=== PATIENT | male | born 1965 | race Caucasian/White ===

== ENCOUNTER 2017-01-16 06:47 | Observation (INO) | payer OTHER ==
[2017-01-16] VITALS (13 sets, daily range): BP systolic 108–121; BP diastolic 68–81
[~2017-01-16] VITALS: Ht 180.3 cm; Wt 111.6 kg
--- NOTE | ~2017-01-16 | D ---
[facility] [place] [address] DISCHARGE SUMMARY Name: CHRISTEL ETIENNE Room #: [facility] Janette M.R.#: [id number] Admission: 01/16/17 Attend Phys: Derek Parada MD Discharge: 01/17/17 Date of : 69 Report #: [id number] THIS REPORT FOR: //name// CC: Rogelio Parada DATE OF SERVICE: 01/17/2017 DIAGNOSES: 1. Atrial flutter. 2. Diabetes. HISTORY OF PRESENT ILLNESS: The patient is a 51-year-old recently hospitalized with atrial flutter with RVR, DKA and diastolic heart failure, who is here for elective ablation of his atrial flutter. The procedure was performed and was successful with achievement of bidirectional block. There were no complications. HOSPITAL COURSE: He was monitored overnight on Telemetry. He remained in sinus rhythm with rare premature ventricular contractions. His vitals were stable. On the day of discharge, he had no chest pain, shortness of breath, and no significant groin discomfort. His physical exam was normal with normal cardiovascular and pulmonary exams. Telemetry revealed sinus rhythm. As such, he was deemed stable for discharge home. Discharge instructions were reviewed. He was discharged on the same medications including his insulin, Xarelto and beta-jose f. I discontinued his diltiazem due to no longer needing this for rate control. He will follow up with me in 1 month. By: [id number] Derek Parada MD /stephane
--- NOTE | ~2017-01-16 | EKG ---
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 chacon : 1965 Requested By: Derek Parada Order Number: [id number] MD: Tomás Miller Measurements Intervals [place] Rate: 61 P: -28 MI: 234 QRS: 107 QRSD: 113 T: -7 QT: 433 QTc: 437 Interpretive Statements Sinus rhythm Prolonged MI interval Incomplete right bundle branch block Compared to ECG 11/25/2016 10:39:59 sinus rhythm has replaced atrial flutter Electronically Signed On 01-17-2017 8:26:48 CDT by Tomás Miller [email or web address] <ELECTRONICALLY SIGNED> By: Tomás Miller MD, [facility] 01/17/17 0826 0637 [id number] Tomás Miller MD, [facility] /EPI
--- NOTE | ~2017-01-16 | P ---
[facility] [place] [address] PROCEDURE REPORT Name: CHRISTEL ETIENNE Room #: [facility] Janette M.Sam.#: [id number] Admission: 01/16/17 Attend Phys: Derek Parada MD Discharge: 01/17/17 Date of : 69 Report #: [id number] THIS REPORT FOR: //name// CC: Rogelio Parada DATE OF SERVICE: 01/16/2017 DATE OF PROCEDURE: 01/16/2017. PROCEDURE: Atrial flutter ablation. PREOPERATIVE DIAGNOSIS: Typical atrial flutter. POSTOPERATIVE DIAGNOSIS: Typical atrial flutter. HISTORY: The patient is a 51-year-old male with a history of recurrent atrial flutter status post recent admission for rapid atrial flutter with acute diastolic heart failure as well as diabetic ketoacidosis. He is here for ablation of his atrial flutter. ANESTHESIA: The patient underwent MAC anesthesia with no anesthesia related complications. DESCRIPTION OF PROCEDURE: The patient underwent informed consent where we discussed the details of the procedure including the risks, which include, but not limited to bleeding, vascular damage, cardiac perforation, stroke, SC as well as damage to the [place] conduction system requiring permanent pacemaker. He understood these risks and is willing to proceed. The patient was brought to the EP laboratory in a fasting and unsedated state and prepped and draped in the sterile fashion. Next, I injected lidocaine to the right groin and obtained access to the right femoral vein x 3 placing an 8 and two 7-Khmer short sheaths using the modified Seldinger technique. Under fluoroscopic guidance, I placed a decapolar catheter into the coronary sinus with ease and a halo catheter into the right atrium. At baseline, the patient was in atrial flutter with a ventricular cycle length of 885 milliseconds and atrial cycle length of 230 milliseconds, QRS duration of 120 milliseconds with preexisting right bundle-branch block. Next, I performed atrial pacing. Pacing from halo 1 and 2, the post-pacing interval minus tachycardia cycle length was 50 milliseconds. As such, a diagnosis of typical atrial flutter was made. Next, I exchanged my short sheath for a ramp sheath and an 8 mm Biosense Mock ablation catheter. I performed 3D mapping and ablation. I performed ablation at 70 self 60 degrees at 6:00 [facility] [address] [place] [address] PROCEDURE REPORT Name: CHRISTEL ETIENNE Room #: [address] [place] [address] Janette Menard#: [id number] Admission: 01/16/17 Attend Phys: Derek Parada MD Discharge: 01/17/17 Date of : 69 Report #: [id number] along the cavotricuspid isthmus. I performed a contiguous ablation lesion. Towards the posterior aspect of this line, there was termination of atrial flutter. Post-ablation, I verified that there was evidence of bidirectional block. The transisthmus conduction time was 175 milliseconds, pacing either medial or lateral to the line. Differential pacing from halo 1, 2 and halos 3, 4 also was consistent with a lateral to medial block. POST-ABLATION FINDINGS: Post-ablation, the basic EP study was performed and AV block was noted at 490 milliseconds. AV kaelyn ERP was noted at 430 milliseconds and [address] cycle length. There was no jump and there was no AV kaelyn echoes. Sinus node recovery time pacing at 400 milliseconds was 1875 milliseconds, pacing at 300 milliseconds was 2801 milliseconds, and pacing at 250 milliseconds, the sinus node recovery time was 2600 milliseconds. We monitored for a period of 30-40 minutes and there was persistence of bidirectional block and there was no induction of any other arrhythmias, such as SVT or atrial fibrillation. Post-ablation, the patient was in sinus rhythm with a sinus cycle length of 840 milliseconds, P interval of 210 milliseconds, QRS duration of 120 milliseconds, a QT interval of 450 milliseconds, and an AH interval of 130 milliseconds, and HV interval of 54 milliseconds. As such, all catheters and sheaths were pulled. Hemostasis was obtained. The patient awoke neurologically hemodynamically intact with no complications and no significant bleeding. CONCLUSIONS: 1. Successful ablation of typical atrial flutter with evidence of bidirectional block. 2. Normal SA kaelyn function. 3. Normal AV kaelyn function. 4. Normal His-Purkinje function. 5. No other inducible arrhythmias. By: [id number] Derek Parada MD /nt
[~2017-01-16 06:47] MED LIST: ALDACTONE25 MG PO; CARDIZEM CD180 MG PO; DOXYCYCLINE 10100 MG PO; FENOFIBRATE160 MG PO; HUMALOG KW200 UNIT/1 SQ; LANTUSSOLASTAR SUBQ; LASIX 40 MG TAB40 M2 PO; MEDROLDOSEPACK PO; METFORMIN HCL500 MG PO; TESSALON PERLE100 M1 PO; XARELTO20 MG PO
[2017-01-16] MEDS ORDERED: ATENOLOL 50MG T50 MG PO (07:07)
[2017-01-16 07:36] LABS: ABSOLUTE NEUTROPHILS 6.6 thou/uL (1.4-8.2); BASOPHILS 0.4 % (0.0-2.0); EOSINOPHILS 2.4 % (0.0-3.0); HEMATOCRIT 40.2 % (42.0-52.0); HEMOGLOBIN 13.6 gm/dL (14.0-18.0); LYMPHOCYTES 20.1 % (24.0-44.0); MCH 28.5 pg (26.0-34.0); MCHC 33.8 g/dL (28.0-37.0); MCV 84.1 fL (80.0-100.0); MONOCYTES 8.2 % (1.0-8.0); PLATELET COUNT 241 thou/uL (150-400); POLYS 68.9 % (36.0-66.0); RBC 4.78 mil/uL (4.50-6.00); RDW 14.1 % (10.5-14.5); WBC 9.6 thou/uL (4.0-11.0)
[2017-01-16 07:41] LABS: MANUAL DIFF NO
[2017-01-16 07:47] LABS: CALCIUM 8.6 mg/dL (8.5-10.1); CREATININE 1.2 mg/dL (0.7-1.3); POTASSIUM 4.4 mmol/L (3.5-5.1)
[2017-01-16 07:52] LABS: ALBUMIN 3.6 g/dL (3.4-5.0); TOTAL BILIRUBIN 0.6 mg/dL (<0.1-1.0); TOTAL PROTEIN 7.2 g/dL (6.4-8.2)
[2017-01-16 08:14] LABS: APTT 26.8 Seconds (24.5-32.8); INR 1.1
[2017-01-17 04:52] VITALS: BP 100/66
[2017-01-17 10:33] VITALS: BP 100/64
== END 2017-01-17 10:50 | disposition home or self-care (01) ==
LOC: CATH 06:47 → 2N 12:11 → CATH 12:22 → 2N 01-17 10:50
PROVIDERS: Internal Medicine Cardiovascular Disease
DX: I48.92 Unspecified atrial flutter (principal); E11.9 Type 2 diabetes mellitus without complications; R07.9 Chest pain, unspecified; R06.02 Shortness of breath; R60.9 Edema, unspecified
CPT/HCPCS: 62110; 62900; 70005

== ENCOUNTER → 2018-11-25 | Outpatient (CLI) | payer OTHER ==
[~2018-11-25] MED LIST changes: +ATENOLOL 50MG T50 MG PO
== END ==
LOC: HYPER 07:20
DX: I83.93 Asymptomatic varicose veins of bilateral lower extremities (principal); E11.10 Type 2 diabetes mellitus with ketoacidosis without coma; I11.0 Hypertensive heart disease with heart failure; I50.30 Unspecified diastolic (congestive) heart failure; I45.10 Unspecified right bundle-branch block; I48.92 Unspecified atrial flutter; Z87.891 Personal history of nicotine dependence; Z79.4 Long term (current) use of insulin; Z79.01 Long term (current) use of anticoagulants; Z79.84 Long term (current) use of oral hypoglycemic drugs